=== PATIENT | male | born 1985 ===

== ENCOUNTER 2017-08-17 21:33 | Emergency (ER) | payer MEDICAID, OTHER ==
--- NOTE | 2017-08-17 21:56 | ED PDOC ---
HPI: Psych/Substance Abuse Time Seen by Provider: 08/17/17 21:47 Chief Complaint (Nursing): Psychiatric Evaluation History Per: Patient (Hearing voices and thinking too much. Denies SI/HI. Taking his meds as ordered.) Past Medical History Vital Signs: Last Vital Signs Temp 98.4 F 08/17/17 21:37 Pulse 76 08/17/17 21:37 Resp 18 08/17/17 21:37 BP 206/96 H 08/17/17 21:37 Pulse Ox 99 08/17/17 21:37 - Medical History PMH: Asthma, Back Problems, Chronic Pain - Family History Family History: States: Unknown Family Hx - Immunization History Hx Tetanus Toxoid Vaccination: Yes Hx Influenza Vaccination: No Hx Pneumococcal Vaccination: No - Home Medications Home Medications: Ambulatory Orders Medication Instructions Recorded No Known Home Med 04/23/16 - Allergies Allergies/Adverse Reactions: Allergies Allergy/AdvReac Type Severity Reaction Status Date / Time No Known Allergies Allergy Verified 08/17/17 21:37 Review of Systems ROS Statement: Except As Marked, All Systems Reviewed And Found Negative Psych: Negative for: Suicidal ideation Physical Exam - Reviewed Nursing Documentation Reviewed: Yes Vital Signs Reviewed: Yes - Physical Exam Appears: Positive for: Non-toxic, No Acute Distress Head Exam: Positive for: ATRAUMATIC, NORMAL INSPECTION, NORMOCEPHALIC Skin: Positive for: Normal Color, Warm, DRY Eye Exam: Positive for: EOMI, Normal appearance, PERRL ENT: Positive for: Normal ENT Inspection Neck: Positive for: Normal, Painless ROM Cardiovascular/Chest: Positive for: Regular Rate, Rhythm Respiratory: Positive for: CNT, Normal Breath Sounds Gastrointestinal/Abdominal: Positive for: Normal Exam, Bowel Sounds, Soft Back: Positive for: Normal Inspection Extremity: Positive for: Normal ROM Neurologic/Psych: Positive for: Alert, Oriented - ECG O2 Sat by Pulse Oximetry: 99 Disposition - Clinical Impression Clinical Impression: Hypertension - Patient ED Disposition Is Patient to be Admitted: Transfer of Care - Disposition Disposition: Transfer of Care Disposition Time: 23:54 Condition: FAIR Forms: [employer] (Brazilian) Patient Signed Over To: Jeremiah Rebolledo
--- NOTE | 2017-08-17 23:55 | ED PDOC ---
- Laboratory Results Result Diagrams: 08/18/17 00:21 08/18/17 00:21 - ECG O2 Sat by Pulse Oximetry: 99 (RA) Pulse Ox Interpretation: Normal Medical Decision Making Medical Decision Making: Time: 00:00 --endorsed to me pending CT scan, sobriety and re-evaluation Time: 01:07 --Patient is still agitated. More Ativan was ordered. Time: 05:[address] FINDINGS: Brain: Unremarkable. No hemorrhage. No significant white matter disease. No edema. Ventricles: Unremarkable. No ventriculomegaly. Bones/joints: Unremarkable. No acute fracture. Soft tissues: Unremarkable. Sinuses: Patchy sinus disease. Mastoid air cells: Unremarkable. No mastoid effusion. IMPRESSION: No evidence of an acute intracranial hemorrhage, midline shift or mass effect is identified. 6 am pt reevaluated, comfortable in no distress. bp improved. labs and urine tox noted. pt had been cleared by toll test desk worker for dc. Scribe Attestation: Documented by Viv Seaman, acting as a scribe for Kesha Daniels MD. Provider Scribe Attestation: All medical record entries made by the Scribe were at my direction and personally dictated by me. I have reviewed the chart and agree that the record accurately reflects my personal performance of the history, physical exam, medical decision making, and the department course for this patient. I have also personally directed, reviewed, and agree with the discharge instructions and disposition. Disposition Discussed With : Gerson Tavares Doctor Will See Patient In The: Office Counseled Patient/Family Regarding: Studies Performed, Diagnosis, Need For Followup - Clinical Impression Clinical Impression: Polysubstance abuse, Depressive disorder - POA Present On Arrival: None - Disposition Referrals: [facility] [Outside] Disposition: Transfer of Care Disposition Time: 07:00 Condition: STABLE Additional Instructions: PATIENT MEDICALLY AND PSYCHIATRICALLY CLEARED FOR INCARCERATION. Instructions: Depression, Polysubstance Abuse Forms: [employer] (Thai) Patient Signed Over To: Sharon Denis Handoff Comments: pending sobriety
[2017-08-18 00:24] LABS: BARBITURATES, UR NEGATIVE (NEGATIVE); BENZODIAZEPINES, UR NEGATIVE (NEGATIVE); OPIATES, UR NEGATIVE (NEGATIVE); PHENCYCLIDINE, UR POSITIVE (NEGATIVE)
[2017-08-18 00:25] LABS: BASO % 0.4 % (0.0-2.0); EOS % 0.1 % (0.0-4.0); HEMOGLOBIN 16.4 g/dL (12.0-18.0); LYMPH # 1.1 K/uL (1.0-4.3); LYMPH % 9.4 % (20.0-40.0); MEAN CELL VOLUME 88.6 fl (80.0-94.0); MEAN CORPUSCULAR HEMOGLOBIN 29.3 pg (27.0-31.0); MONO # 0.3 K/uL (0.0-0.8); MONO % 2.8 % (0.0-10.0); NEUT # 10.3 K/uL (1.8-7.0); NEUT % 87.3 % (50.0-75.0); PLATELET COUNT 247 K/uL (130-400); RED CELL DISTRIBUTION WIDTH 15.2 % (11.5-14.5); WHITE BLOOD COUNT 11.8 K/uL (4.8-10.8)
[2017-08-18 00:34] LABS: ALB/GLOB RATIO 1.2 (1.0-2.1); ALBUMIN 4.7 g/dL (3.5-5.0); ALT/SGPT 37 U/L (21-72); AST/SGOT 33 U/L (17-59); BLOOD UREA NITROGEN 15 mg/dl (9-20); CALCIUM 9.6 mg/dL (8.4-10.2); GFR AFRICAN-AMERICAN > 60; GFR NON-AFRICAN AMERICAN > 60
[2017-08-18 02:27] LABS: LARGE PLATELETS PRESENT; LYMPHOCYTE 8 % (20-50); MONOCYTE 1 % (0-10); NEUTROPHIL 89 % (42-75); PLATELET ESTIMATE NORMAL (NORMAL); REACTIVE LYMPHOCYTES 2 % (0-0); TOTAL CELLS COUNTED 100
[2017-08-18 02:28] LABS: HYPOCHROMIC SLIGHT
--- NOTE | 2017-08-18 05:31 | CT ---
EXAM: CT Head Without Intravenous Contrast CLINICAL HISTORY: 31 years old, male; Signs and symptoms; Altered mental status/memory loss; Confusion or disorientation; Additional info: R/O bleed TECHNIQUE: Axial computed tomography images of the head/brain without intravenous contrast. All CT scans at this facility use one or more dose reduction techniques, viz.: automated exposure control; ma/kV adjustment per patient size (including targeted exams where dose is matched to indication; i.e. head); or iterative reconstruction technique. 298 images are submitted. Coronal and sagittal reformatted images were created and reviewed. Axial reformatted images were created and reviewed. COMPARISON: No relevant prior studies available. FINDINGS: Brain: Unremarkable. No hemorrhage. No significant white matter disease. No edema. Ventricles: Unremarkable. No ventriculomegaly. Bones/joints: Unremarkable. No acute fracture. Soft tissues: Unremarkable. Sinuses: Patchy sinus disease. Mastoid air cells: Unremarkable. No mastoid effusion. IMPRESSION: No evidence of an acute intracranial hemorrhage, midline shift or mass effect is identified.
--- NOTE | 2017-08-18 07:36 | CARD ---
APPROVED REPORT EKG Measurement Heart [id number] <Conclusion> Normal sinus rhythm with sinus arrhythmia Biatrial enlargement Left ventricular hypertrophy Abnormal ECG
--- NOTE | 2017-08-18 07:52 | ED PDOC ---
- Laboratory Results Result Diagrams: 08/18/17 00:21 08/18/17 00:21 - ECG O2 Sat by Pulse Oximetry: 99 (RA) Pulse Ox Interpretation: Normal Medical Decision Making Medical Decision Making: Time: 0700 --Patient endorsed from Dr. Rebolledo to me. --Pending sobriety. Time: 1015 --Patient will be discharged home for polysubstance abuse and depressive disorder. Scribe Attestation: Documented by Sarah Cheng, acting as a scribe for Sharon Denis MD. Provider Scribe Attestation: All medical record entries made by the Scribe were at my direction and personally dictated by me. I have reviewed the chart and agree that the record accurately reflects my personal performance of the history, physical exam, medical decision making, and the department course for this patient. I have also personally directed, reviewed, and agree with the discharge instructions and disposition. Disposition - Clinical Impression Clinical Impression: Polysubstance abuse, Depressive disorder - POA Present On Arrival: None - Disposition Referrals: [facility] [Outside] Disposition: Discharged/Transfer to Law Enforcement Disposition Time: 10:15 Condition: STABLE Additional Instructions: PATIENT MEDICALLY AND PSYCHIATRICALLY CLEARED FOR INCARCERATION. Instructions: Depression, Polysubstance Abuse Forms: [employer] (Irish)
--- NOTE | 2017-08-18 09:29 | RAD ---
HISTORY: cough COMPARISON: No prior. FINDINGS: LUNGS: No active pulmonary disease. PLEURA: No significant pleural effusion identified, no pneumothorax apparent. CARDIOVASCULAR: Normal. OSSEOUS STRUCTURES: No significant abnormalities. VISUALIZED UPPER ABDOMEN: Normal. OTHER FINDINGS: None. IMPRESSION: No active disease.
--- NOTE | 2017-08-18 09:39 | RAD ---
HISTORY: r/o FB COMPARISON: No prior. FINDINGS: BOWEL: Prominent amount of retained colonic stool. No free air. BONES: Normal. OTHER FINDINGS: Questionable 6 mm left renal calculi. IMPRESSION: Prominent amount of retained colonic stool. Questionable 6 mm left renal calculus.
[2017-08-18 11:10] VITALS: BP 155/85; PULSE 76; RESP 18; TEMP 97.8
[2017-08-20 13:19] VITALS: O2SAT 99
== END 2017-08-18 11:00 | disposition home or self-care (01) ==
LOC: H.ER 21:33
DX: F19.10 Other psychoactive substance abuse, uncomplicated (principal); Z86.59 Personal history of other mental and behavioral disorders; G89.29 Other chronic pain; J45.909 Unspecified asthma, uncomplicated
CPT/HCPCS: 70450; 71045; 74022; 80053; 80320; 80324; 80345; 80346; 80349; 80353; 80358; 80361; 83992; 85025; 93005; 96372; 96374; 96376; 99285; J1630; J2060

== ENCOUNTER 2018-02-13 04:26 | Emergency (ER) | payer MEDICAID ==
[2018-02-13 04:45] VITALS: RESP 17; TEMP 98.6; O2SAT 98
--- NOTE | 2018-02-13 05:01 | ED PDOC ---
HPI: Abdomen Time Seen by Provider: 02/13/18 04:43 Chief Complaint (Nursing): Abdominal Pain Chief Complaint (Provider): abdominal pain History Per: Patient History/Exam Limitations: no limitations Onset/Duration Of Symptoms: Days (2) Current Symptoms Are (Timing): Still Present Location Of Pain/Discomfort: Diffuse Last Bowel Movement: Today Additional Complaint(s): 32 y/o male presents for evaluation of abdominal pain x 2 days. Denies fever, nausea/vomiting, chest pain, shortness of breath, palpitations, changes in bowel movements, urinary symptoms. Past Medical History Reviewed: Historical Data, Nursing Documentation, Vital Signs Vital Signs: Last Vital Signs Temp 98.6 F 02/13/18 04:42 Pulse 81 02/13/18 06:11 Resp 17 02/13/18 04:42 BP 120/78 02/13/18 06:11 Pulse Ox 98 02/13/18 06:01 - Medical History PMH: Asthma, Back Problems, Chronic Pain Denies: Diabetes, Hepatitis, HIV, HTN, Seizures, Sexually Transmitted Disease - Surgical History Surgical History: No Surg Hx - Family History Family History: States: Unknown Family Hx - Immunization History Hx Tetanus Toxoid Vaccination: Yes Hx Influenza Vaccination: No Hx Pneumococcal Vaccination: No - Home Medications Home Medications: Ambulatory Orders Medication Instructions Recorded Dolutegravir Sodium [Tivicay] 50 mg PO DAILY #3 tab 09/03/17 Dolutegravir Sodium [Tivicay] 50 mg PO DAILY #30 tab 09/03/17 Emtricitabine/Tenofovir (Tdf) 1 each PO DAILY #3 tablet 09/03/17 [Truvada 200 mg-300 mg Tablet] Emtricitabine/Tenofovir (Tdf) 1 each PO DAILY #30 tablet 09/03/17 [Truvada 200 mg-300 mg Tablet] - Allergies Allergies/Adverse Reactions: Allergies Allergy/AdvReac Type Severity Reaction Status Date / Time No Known Allergies Allergy Verified 02/13/18 04:45 Review of Systems ROS Statement: Except As Marked, All Systems Reviewed And Found Negative Gastrointestinal: Positive for: Abdominal Pain Physical Exam - Reviewed Nursing Documentation Reviewed: Yes Vital Signs Reviewed: Yes - Physical Exam Appears: Positive for: Well, Non-toxic, No Acute Distress Head Exam: Positive for: ATRAUMATIC, NORMAL INSPECTION, NORMOCEPHALIC Skin: Positive for: Normal Color Eye Exam: Positive for: Normal appearance ENT: Positive for: Normal ENT Inspection Cardiovascular/Chest: Positive for: Regular Rate, Rhythm Respiratory: Positive for: Normal Breath Sounds Gastrointestinal/Abdominal: Positive for: Normal Exam, Bowel Sounds, Soft. Negative for: Tenderness Back: Positive for: Normal Inspection Extremity: Positive for: Normal ROM - Laboratory Results Result Diagrams: 02/13/18 05:05 02/13/18 05:05 - ECG O2 Sat by Pulse Oximetry: 98 - Progress ED Course And Treament: labs, urine Patient sleeping upon re-eval. Tolerated PO upon awakening Patient educated on findings, discharged with instructions to follow up PMD 2-3 days Return precautions given Disposition - Clinical Impression Clinical Impression: Abdominal pain - Patient ED Disposition Is Patient to be Admitted: No Counseled Patient/Family Regarding: Studies Performed, Diagnosis, Need For Followup - Disposition Referrals: [facility] [Outside] Disposition: Routine/Home Disposition Time: 06:00 Condition: IMPROVED Instructions: Acute Abdomen (Belly Pain), Adult (DC)
[2018-02-13 05:42] LABS: BASO % 0.5 % (0.0-2.0); EOS # 0.1 K/uL (0.0-0.7); EOS % 0.8 % (0.0-4.0); HEMOGLOBIN 14.3 g/dL (12.0-18.0); LYMPH # 2.6 K/uL (1.0-4.3); LYMPH % 28.3 % (20.0-40.0); MEAN CELL VOLUME 90.3 fl (80.0-94.0); MEAN CORPUSCULAR HEMOGLOBIN 30.1 pg (27.0-31.0); MEAN CORPUSCULAR HGB CONC 33.3 g/dL (33.0-37.0); MEAN PLATELET VOLUME 10.2 fl (7.2-11.7); MONO # 0.6 K/uL (0.0-0.8); MONO % 6.3 % (0.0-10.0); NEUT # 5.9 K/uL (1.8-7.0); NEUT % 64.1 % (50.0-75.0); NRBC % 0.2 % (0.0-0.0); RBC 4.75 Mil/uL (4.40-5.90); RED CELL DISTRIBUTION WIDTH 14.7 % (11.5-14.5); WHITE BLOOD COUNT 9.2 K/uL (4.8-10.8)
[2018-02-13 05:44] LABS: BARBITURATES, UR NEGATIVE (NEGATIVE); BENZODIAZEPINES, UR NEGATIVE (NEGATIVE); OPIATES, UR NEGATIVE (NEGATIVE); PHENCYCLIDINE, UR NEGATIVE (NEGATIVE)
[2018-02-13 05:52] LABS: ALB/GLOB RATIO 1.4 (1.0-2.1); ALBUMIN 3.9 g/dL (3.5-5.0); ALT/SGPT 33 U/L (21-72); AST/SGOT 59 U/L (17-59); BLOOD UREA NITROGEN 13 mg/dl (9-20); CALCIUM 9.1 mg/dL (8.4-10.2); GFR NON-AFRICAN AMERICAN > 60; LIPASE 29 U/L (23-300)
[2018-02-13 06:02] LABS: URINE AMORPHOUS SEDIMENT RARE /ul (<OCC); URINE BACTERIA RARE (<OCC); URINE BILIRUBIN NEGATIVE (NEGATIVE); URINE BLOOD SMALL (NEGATIVE); URINE CLARITY SLIGHTY-CLOUDY (Clear); URINE COLOR YELLOW (YELLOW); URINE GLUCOSE (UA) NEG (Normal); URINE LEUKOCYTE ESTERASE NEG Leu/uL (Negative); URINE PROTEIN NEGATIVE (NEGATIVE); URINE UROBILINOGEN 0.2-1.0 mg/dL (0.2-1.0)
[2018-02-13 06:12] VITALS: BP 120/78; PULSE 81
== END 2018-02-13 06:12 | disposition home or self-care (01) ==
LOC: H.ER 04:26
DX: R10.9 Unspecified abdominal pain (principal); G89.29 Other chronic pain